=== PATIENT | female | born 1930 | race Caucasian/White ===

== ENCOUNTER 2018-03-20 08:55 | Day surgery (SDC) | payer OTHER, MEDICARE ==
[2018-03-20] MEDS ORDERED: PROPOFOL 200 MG/20 ML VIAL IV ONE (10:32)
[2018-03-20] MEDS ORDERED: LIDOCAINE 2% MPF 5 ML VIAL ONE ×3 (10:33→11:24)
[2018-03-20] MEDS ORDERED: MIDAZOLAM HCL 2 MG/2 ML INJ ONE (10:33)
[2018-03-20] MEDS ORDERED: DEPO-MEDROL 40 MG/ML IM ONE ×2 (10:58→11:25)
[2018-03-20] MEDS ORDERED: LIDOCAINE 1% MPF 5 ML VIAL ONE ×3 (10:58→12:01)
[2018-03-20] MEDS ORDERED: BUPIVACAINE 0.25% PF 10 ML VIAL ONE ×2 (10:59→11:25)
[2018-03-20] MEDS ORDERED: NA CHLORIDE 0.9% 1,000 ML ONE (11:06)
--- NOTE | 2018-03-20 13:35 | RAD REPORT ---
EXAM DESCRIPTION: RAD - Fluoro Guide Spinal Inj - 03/20/2018 1:23 pm FINDINGS: Portable C-arm views were obtained during fluoroscopic assisted placement of pain injectio n or radioablation hardware. A total of 4 C-arm views were submitted with no suspicious or unexpected finding. Fluoro time was 1.5 minutes. Cumulative dose was 17.5 mGy.
== END 2018-03-20 13:20 | disposition home or self-care (01) ==
LOC: OR 08:55
PROVIDERS: ATTEND Pain Medicine Interventional Pain Medicine
PROC: 3E0T3TZ Introduction of Destructive Agent into Peripheral Nerves and Plexi, Percutaneous Approach (ICD-10-PCS; 2018-03-20)
PROC: BR16ZZZ Fluoroscopy of Lumbar Facet Joint(s) (ICD-10-PCS; 2018-03-20)
PROC: 3E0T3TZ Introduction of Destructive Agent into Peripheral Nerves and Plexi, Percutaneous Approach (ICD-10-PCS; principal; 2018-03-20 11:00)
DX: M47.816 Spondylosis without myelopathy or radiculopathy, lumbar region (principal); M54.5 Low back pain; E11.9 Type 2 diabetes mellitus without complications
CPT/HCPCS: 64635; 64636 ×2; 77003; 82962; J1030; J2250; J7030